=== PATIENT | female | born 2000 | race Caucasian/White ===

== ENCOUNTER 2020-02-23 14:21 | Emergency (ER) | payer BC, SELFPAY ==
--- NOTE | 2020-02-23 14:43 | ED.HA ---
HPI - Headache General Chief Complaint: Headache Stated Complaint: headache Source: patient and RN notes reviewed Mode of arrival: ambulatory Limitations: no limitations History of Present Illness HPI Narrative: The patient, a non-smoker/nondrinker, presents with headache. Patient states she has a week long history of typical, gradual onset frontal helmet headache similar to prior events. Symptoms are mild, unrelieved with OTC preparations like Tylenol, [place] oil, etc. Her mother has similar headaches; no fever, prior imaging, trauma, numbness/weakness, URI?sinusitis, loss of sense of taste/smell, speech?visual changes, lateralizing weakness, related to foods -it IS related to menses started in the last week Related Data Home Medications Medication Instructions Recorded Confirmed norgestimate-ethinyl estradiol 1 tablet PO DAILY 02/23/20 02/23/20 [Tri Femynor] Allergies Allergy/AdvReac Type Severity Reaction Status Date / Time No Known Allergies Allergy Unverified 02/23/20 14:53 Review of Systems Review of Systems: Narrative: The patient has been informed that they may have pre-hypertension or Hypertension based on a BP reading in the department. I recommend that the patient call the primary care provider listed on their discharge instructions or a physician of their choice this week to arrange follow up for further evaluation of possible pre-hypertension or Hypertension General/Constitutional: No weight loss,fever Eyes: N0: Redness,discharge Ears/Nose/Throat: No: Epistaxis,ear discharge Respiratory: Denies: Hemoptysis Gastrointestinal: No Vomiting, Bleeding-rectal Skin: No Lumps, eruption Neurologic: No Focal Weakness,Sz Hematologic: Denies: Petechiae/Purpura Psychiatric: No: Suicida ideationl All Other Systems: Reviewed and Negative PMFSH Comments At time of signature, agree with nursing past medical, surgical, social and family history. There is no relevant family history pertinent to the presenting complaint Exam Narrative: Exam Narrative: General Appearance: Well appearing, No distress EYE: PERRLA, Conjunctiva clear Ears: External ear normal Nose: Normal nose Mouth/Throat: Normal appearing, Normal lips Neck: Supple Respiratory: Airway patent, No respiratory distress Musculoskeletal: Full ROM Skin: Warm, Dry Neurological: A&O x3, CN II-X intact Psychiatric: Normal mood, Normal affect Course Vital Signs Vital signs: Vital Signs Temperature 98.3 F 02/23/20 14:50 Pulse Rate 74 02/23/20 14:50 Respiratory Rate 02/23/20 14:50 Blood Pressure 133/97 H 02/23/20 14:50 Pulse Oximetry 100 02/23/20 14:50 Temperature 98.3 F 02/23/20 14:50 Pulse Rate 74 02/23/20 14:50 Respiratory Rate 02/23/20 14:50 Blood Pressure 133/97 H 02/23/20 14:50 Pulse Oximetry 100 02/23/20 14:50 Discharge Plan Discharge Clinical Impression: Migraine headache Qualifiers: Migraine type: unspecified Status migrainosus presence: without status migrainosus Intractability: not intractable Qualified Code(s): G43.909 - Migraine, unspecified, not intractable, without status migrainosus Patient Disposition: Home, Self-Care Condition: Stable Instructions: Antibiotic Form Prescriptions: New tramadol 50 mg tablet 25 - 50 mg PO Q6H PRN (Reason: pain) Qty: 15 RF: 1 prochlorperazine maleate [Compazine] 10 mg tablet 10 mg PO Q6H PRN (Reason: nausea and vomiting) Qty: 10 RF: 1 halausrlck-iochexssznizj-hxze [Fioricet] 50-300-40 mg capsule 1 cap PO HS PRN (Reason: pain, Not To Be Used/ Combined With Ultram) Qty: 10 RF: 0 No Action norgestimate-ethinyl estradiol [Tri Femynor] 0.18/0.215/0.25 mg-35 mcg (28) Tablet 1 tablet PO DAILY RF: 0 Follow-up/Referrals: Matteo,Shelby Levi MD [Primary Care Provider] - Stand Alone Forms: Work/School Release IP Discharge Date/Time: 02/23/20 15:17
[2020-02-23 14:50] VITALS: BP 133/97; PULSE 74; RESP 20; TEMP 36.8; O2SAT 100
== END 2020-02-23 15:17 | disposition home or self-care (01) ==
PROVIDERS: Emergency Provider Emergency Medicine; PCP Pediatrics Adolescent Medicine
DX: G43.909 Migraine, unspecified, not intractable, without status migrainosus (principal); J45.909 Unspecified asthma, uncomplicated; R03.0 Elevated blood-pressure reading, without diagnosis of hypertension
CPT/HCPCS: 99203; G0463

== ENCOUNTER 2021-02-05 11:30 | Emergency (ER) | payer BC, SELFPAY ==
[2021-02-05 11:36] VITALS: BP 130/97; PULSE 85; RESP 16; TEMP 36.4; O2SAT 100
--- NOTE | 2021-02-05 11:57 | ED.URI ---
HPI - URI/Sore Throat General Chief Complaint: Upper Respiratory Infection Stated Complaint: SORE THROAT Time Seen by Provider: 02/05/21 11:45 Source: patient and RN notes reviewed Mode of arrival: ambulatory Limitations: no limitations History of Present Illness HPI Narrative: Patient presents today with a 2-day history of sore throat, rhinorrhea, postnasal drip, subjective fever this morning. Denies cough or ear pain. She currently rates her pain 6/10, which increases with swallowing. She has tried no zfav-yqx-qfwljjv treatment prior to arrival. She has not been vaccinated against COVID-19. MD elicited complaint: sore throat Related Data Home Medications Medication Instructions Recorded Confirmed norgestimate-ethinyl estradiol 1 tablet PO DAILY 02/23/20 02/23/20 [Tri Femynor] Allergies Allergy/AdvReac Type Severity Reaction Status Date / Time No Known Allergies Allergy Unverified 02/23/20 14:53 Review of Systems Review of Systems: Narrative: CONSTITUTIONAL: Denies body aches, chills, or sweats. + Subjective fever EYES: Denies visual changes, redness, or discharge. ENT: Denies congestion, or otalgia.+ Sore throat, rhinorrhea, postnasal drip CARDIOVASCULAR: Denies chest pain, palpitations, or edema. RESPIRATORY: Denies cough or dyspnea. GASTROINTESTINAL: Denies abdominal pain, nausea, vomiting, or diarrhea. GENITOURINARY: Denies dysuria or hematuria. SKIN: Denies rash, itching, or wounds. MUSCULOSKELETAL: Denies back pain, joint pain, or myalgia. NEUROLOGIC: Denies headache, numbness, tingling, or weakness. PSYCH: Denies depression or anxiety. PMFSH Comments At time of signature, I have reviewed and agree with nursing past medical, surgical, social and family history unless otherwise noted. Please see nursing chart for further information. There is no relevant family history pertinent to the presenting complaint Exam Narrative: Exam Narrative: GENERAL: Well-appearing, well-nourished, and in no acute distress. HEAD: Normocephalic, atraumatic. EYES: EOMI. No redness or drainage. Conjunctivae normal. ENT: Mucous membranes pink and moist. Nares clear. No rhinorrhea. TMs normal bilaterally. Throat mildly erythematous. Small amount of white exudate on the right.. Uvula midline. NECK: Normal AROM. Supple. No lymphadenopathy. CHEST: No respiratory distress. Clear to auscultation. HEART: Regular rate and rhythm. No murmur appreciated. Normal peripheral pulses. EXTREMITIES: Normal range of motion. No edema. SKIN: Warm, dry, no rash. Capillary refill normal. Normal skin turgor. NEURO: No focal deficits. Alert and oriented x3. Gait steady. PSYCH: Normal affect. No signs of depression or anxiety. Course Vital Signs Vital signs: Vital Signs Temperature 97.6 F 02/05/21 11:36 Pulse Rate 85 02/05/21 11:36 Respiratory Rate 16 02/05/21 11:36 Blood Pressure 130/97 H 02/05/21 11:36 Pulse Oximetry 100 02/05/21 11:36 Temperature 97.6 F 02/05/21 11:36 Pulse Rate 85 02/05/21 11:36 Respiratory Rate 16 02/05/21 11:36 Blood Pressure 130/97 H 02/05/21 11:36 Pulse Oximetry 100 02/05/21 11:36 Reviewed. Pt has been instructed to follow up with her PCP regarding her elevated blood pressure today. MDM - URI/Sore Throat Differential Diagnosis Differential diagnosis: Likely upper respiratory infection, sinusitis, viral infection, pharyngitis and other (Strep throat, seasonal allergies) Lab Data Attestation: I reviewed the patient's lab results. Labs: Strep Screen Presumptive Negative *(Reference Range: Negative)* Critical Care Time Critical Care Time Critical Care Time: No Discharge Plan Discharge Clinical Impression: Upper respiratory infection Qualifiers: URI type: unspecified URI Qualified Code(s): J06.9 - Acute upper respiratory infection, unspecified Patient Disposition: Home, Self-Care Condition: Stable
== END 2021-02-05 12:06 | disposition home or self-care (01) ==
PROVIDERS: Emergency Provider Nurse Practitioner
DX: J06.9 Acute upper respiratory infection, unspecified (principal)
CPT/HCPCS: 87081; 87880; 99213; G0463

== ENCOUNTER 2024-08-07 08:36 | Emergency (ER) | payer BC, SELFPAY ==
[2024-08-07] VITALS (29 sets, daily range): BP systolic 107–139; BP diastolic 48–85; PULSE 60–68; RESP 18; TEMP 36.9; O2SAT 96–100
--- NOTE | ~2024-08-07 | CT_ITS ---
EXAMINATION:CT diagnostic chest wo con DATE: 08/07/2024 10:43 INDICATION: Left rib pain. TECHNIQUE: Computed tomography (CT) of the chest was performed without intravenous contrast. Automate d exposure control and iterative reconstruction technique were employed. The dose-length product (DLP ) was 143.43 mGy-cm. COMPARISON: None. FINDINGS: There is mild dependent atelectasis bilaterally. No pleural effusion. The heart size is nor mal. No pericardial effusion. There is a burst fracture of T8 with 3/5 loss of height centrally and l eft-sided sagittal cleft. There is a chronic compression fracture of T11 with 1/5 loss of height. IMPRESSION: 1. Acute T8 burst fracture. Reviewed, dictated and finalized at location A. LD CLEANER IMPRESSION: 1. Acute T8 burst fracture.
--- NOTE | ~2024-08-07 | CT_ITS ---
EXAMINATION: CT thoracic lumbar wo con DATE: 08/07/2024 10:44 INDICATION: Back pain. Fall down stairs. TECHNIQUE: Computed tomography (CT) of the thoracic and lumbar spine was performed without intravenou s contrast. Automated exposure control and iterative reconstruction technique were employed. The dose -length product was 1006.68 mGy-cm. COMPARISON: None FINDINGS: CT THORACIC SPINE: There is 6 degrees dextrocurvature of thoracic spine. There is a burst fracture of T8 with 3/5 loss of height centrally. There is a chronic compression fracture of T11 with 1/5 loss o f height. There is mildly decreased disc height at T10-T11. There is multilevel mild facet joint oste oarthritis. No neural foraminal stenosis or central canal stenosis. CT LUMBAR SPINE: Alignment is normal. Vertebral body heights and intervertebral disc heights are norm al. The following disc levels are specifically discussed: L1-L2: The disc does not extend beyond the endplate margin. There is mild bilateral facet joint osteo arthritis. There is no neural foraminal stenosis. There is no central canal stenosis. L2-L3: The disc does not extend beyond the endplate margin. There is mild bilateral facet joint osteo arthritis. There is no neural foraminal stenosis. There is no central canal stenosis. L3-L4: The disc is bulging. There is mild bilateral facet joint osteoarthritis. There is mild bilater al neural foraminal stenosis. There is mild central canal stenosis. L4-L5: The disc is bulging. There is mild bilateral facet joint osteoarthritis. There is mild bilater al neural foraminal stenosis. There is mild central canal stenosis. L5-S1: The disc is bulging. There is moderate bilateral facet joint osteoarthritis. There is mild lef t neural foraminal stenosis. There is mild central canal stenosis. IMPRESSION: 1. Acute T8 burst fracture. 2. Mild thoracic and lumbar spondylosis. Reviewed, dictated and finalized at location A. HAND
[2024-08-07] MEDS: MORPHINE SULFATE (*CRX) 4 MG/ML INJ IV PUSH (09:53)
[2024-08-07] MEDS: ONDANSETRON INJ 4 MG/2 ML VIAL IV PUSH (09:53)
--- NOTE | 2024-08-07 10:03 | ED_ITS ---
HPI - Back Pain/Injury General Chief Complaint: Back Pain/Injury Stated Complaint: mid back pain after slipping on 3 steps Time Seen by Provider: 08/07/24 09:01 Source: patient Mode of arrival: EMS Limitations: no limitations History of Present Illness HPI Narrative: Patient is a 23-year-old female who presents the ED via EMS with report of a fall and back pain. Patient reports she slipped on ice on her front steps and fell backwards onto her back. Complains of pain to her mid, left-sided, and lower back. Also reports pain to left ribs which is worse with deep inspiration. States she was unable to get up off the ground, required EMS is assistance due to the pain. Denies any other areas of pain. She did not hit her head or lose consciousness. Denies dizziness. Denies numbness, weakness, bowel or bladder incontinence, abdominal pain. Related Data Home Medications ?Medication ?Instructions ?Recorded ?Confirmed ?Last Taken ?Type norgestimate-ethinyl estradiol 1 tablet PO DAILY 02/23/20 02/23/20 Unknown History 0.18 mg/0.215mg/0.25mg-35 mcg(28)tablet (Tri Femynor) Allergies Allergy/AdvReac Type Severity Reaction Status Date / Time No Known Allergies Allergy Verified 08/07/24 09:06 Review of Systems Review of Systems: All systems reviewed & are unremarkable except as noted in HPI. All systems reviewed & are unremarkable except as noted in HPI and below Exam Narrative: GENERAL: Anxious/tearful appearing, well-nourished, in no acute distress d/t pain. HEAD: Normocephalic, atraumatic. RESPIRATORY: Airway patent, respirations nonlabored. Clear to auscultation bilaterally, no rales, rhonchi, wheezing. Pain to L ribs with deep inspiration. Lung sounds seem equal bilaterally. CARDIOVASCULAR: Regular rate and rhythm without murmurs, rubs, or gallops. ABDOMINAL: Soft, nontender, nondistended. Normoactive BS. MUSCULOSKELETAL: Moves all extremities. No gross deformities. TTP diffusely thro ughout lower midline thoracic spine into upper midline lumbar region. TTP over L mid back over inferior lateral rib cage. No palpable bony deformities or step offs. Sensation intact. No significant tenderness throughout cervical midline spine. SKIN: Warm, dry, normal color. NEURO: A&O X3. Speech clear. Cranial nerves II-XII grossly intact. Steady gait. No ataxic movements. No focal deficits. PSYCHIATRIC: Anxious/to fall. Normal interaction. Course Vital Signs Vital signs: Vital Signs Temperature 98.4 F 08/07/24 08:32 Pulse Rate 64 08/07/24 08:32 Respiratory Rate 18 08/07/24 08:32 Pulse Oximetry 100 08/07/24 08:32 Oxygen Delivery Room Air 08/07/24 08:32 Temperature 98.4 F 08/07/24 08:32 Pulse Rate 68 08/07/24 13:01 Respiratory Rate 18 08/07/24 13:01 Blood Pressure 115/68 08/07/24 13:01 Pulse Oximetry 98 08/07/24 13:01 Oxygen Delivery Room Air 08/07/24 08:32 MDM - Back Pain/Injury MDM Narrative Medical decision making narrative: Patient presented to ED status post fall on ice, slipped on the stairs. Reporting pain to left mid and lower back. Vital signs are stable upon arrival. Patient is mildly uncomfortable appearing, pain worse with any type of movement. There are no signs of cord compression or cauda equina. Normal neurologic exams. No numbness or tingling in extremities. No red flag symptoms. Imaging showing acute burst fracture of T8 with 3/5th height loss. Consistent with injury and clinical exam. Will discuss with Neurosurgery. Discussed case with Dr. Justin, neurosurgery, will f/u in office as outpatient, recommended TSLO brace. Will have [facility] come to ED to have patient fitted for TLSO brace. Office will call patient for f/u appt. Patient ambulates with a steady gait after pain control. She remains neurologically intact. Feel she is safe for discharge home with pain medicine and further outpatient management. Discussed strict return precautions. She agrees w/ plan. Feels comfortable going home. Has family to help her. Patient discharged in stable condition. Medical Records Attestation: I reviewed the patient's medical records. Imaging Data Attestation: I personally reviewed and interpreted this imaging study as linda baer: Radiologist's impression: ITS Impressions Chest CT 08/07/24 11:00 IMPRESSION: 1. Acute T8 burst fracture. Thoracic/Lumbar Spine CT 08/07/24 11:03 IMPRESSION: 1. Acute T8 burst fracture. 2. Mild thoracic and lumbar spondylosis. Discharge Plan Discharge Clinical Impression: Stable burst fracture of T8 vertebra Qualifiers: Encounter type: initial encounter Fracture type: closed Qualified Code(s): S22.061A - Stable burst fracture of T7-T8 vertebra, initial encounter for closed fracture Fall from slipping on ice Qualifiers: Encounter type: initial encounter Qualified Code(s): W00.9XXA - Unspecified fall due to ice and snow, initial encounter Patient Disposition: Home, Self-Care Condition: Stable Instructions: Antibiotic Form, Vertebral Compression Fracture (ED), Acute Low Back Pain (ED) Additional Instructions: The neurosurgery office should be contacting you to make an appointment for further evaluation of fracture. I have provided their number below. Wear TLSO brace at all times when out of bed for support and stabilization. Recommend ice, lidocaine patches to areas of pain. Continue Tylenol/ibuprofen as needed for pain. Oxycodone as needed for more severe/breakthrough pain. Take muscle relaxers as needed and prescribed. Recommend taking these at night as they may cause sedation. Do not drive, operate heavy machinery, drink alcohol while on muscle relaxers as this may cause further sedation. Use caution taking Oxycodone with muscle relaxers as these can both cause sedation. Return to the ED if you experience recurrent fall or injury, numbness of arms or legs, weakness, going to the bathroom without meeting to, unable to ambulate, fevers, or any other symptoms of concern. Patient Language: Belarusian Prescriptions: New oxycodone 5 mg tablet 5 mg PO Q6H PRN (Reason: pain) Qty: 20 0RF cyclobenzaprine 5 mg tablet 5 mg PO TID PRN (Reason: muscle spasm) Qty: 15 0RF lidocaine 5 % adhesive patch,medicated 1 patch topical DAILY Qty: 15 0RF Rx Instructions: leave on most painful area for up to 12 hrs No Action norgestimate-ethinyl estradiol [Tri Femynor] 0.18/0.215/0.25 mg-35 mcg (28) Tablet 1 tablet PO DAILY Follow-up/Referrals: Reinaldo Justin MD [Physician] - (NEUROSURGERY) PHYSICIAN,REPAIRER CYLINDER HEADS [Primary Care Provider] - Stand Alone Forms: Work/School Release IP Time of Disposition: 16:23
[2024-08-07] MEDS: HYDROcodone/acetaminophen (*CRX) 5-325 MG TABLET 1 TAB PO (11:30)
[2024-08-07] MEDS: KETOROLAC 30 MG/ML VIAL (*BKC) IV PUSH (11:31)
--- NOTE | 2024-08-07 11:48 | PC.NURSE ---
Patient ambulated to the restroom with assistance from family
--- NOTE | 2024-08-07 15:05 | PC.NURSE ---
Patient updated on wait time. Still waiting for back brace company to come with item.
[2024-08-07] MEDS: oxyCODONE HCL (*CRX) 5 MG TAB IR PO (16:01)
[2024-08-07] MEDS: LIDOCAINE 5% PATCH 1 PATCH TRANSDERM (16:02)
== END 2024-08-07 17:31 | disposition home or self-care (01) ==
PROVIDERS: Emergency Provider Physician Assistant
DX: S22.061A Stable burst fracture of T7-T8 vertebra, initial encounter for closed fracture (principal); M47.815 Spondylosis without myelopathy or radiculopathy, thoracolumbar region; W00.0XXA Fall on same level due to ice and snow, initial encounter
CPT/HCPCS: 71250; 72128; 72131; 96374; 96375; 99284; A9270; J1885; J2270; J2405

== ENCOUNTER 2024-12-11 10:13 | Emergency (ER) | payer BC, SELFPAY ==
--- NOTE | ~2024-12-11 | US_ITS ---
EXAM: ABDOMEN ULTRASOUND HISTORY: Right upper quadrant and back pain COMPARISON: None FINDINGS: LIVER: The liver is unremarkable in echogenicity and size measuring 16 cm in longitudinal dimension. The portal vein is patent, demonstrating hepatopedal flow. GALLBLADDER: No stones are identified within the gallbladder, which is otherwise unremarkable. No gallbladder wall thickening or pericholecystic fluid. BILE DUCTS: Common bile duct measures 2.4mm. PANCREAS: Limited evaluation of the pancreas secondary to overlying bowel gas RIGHT KIDNEY: Unremarkable in echogenicity and size measuring 10.8 x 5.8 x 5.1 cm. No hydronephrosis or renal calculi. IMPRESSION: Unremarkable sonographic evaluation of the right upper quadrant, as detailed above. Reviewed, dictated and finalized at location A. IMPRESSION: Unremarkable sonographic evaluation of the right upper quadrant, as detailed ab julieta.
[2024-12-11 10:28] VITALS: BP 141/70; PULSE 78; RESP 20; TEMP 36.7; O2SAT 100
--- OUTSIDE RECORDS SUMMARY | 2024-12-11 10:45 | XMS_ITS | Continuity of Care Document ---
Author Organization [facility] Address [address] [place] [address] Phone Care Team Providers Care Weigh Boss Name Role Phone Leon OD, Aguilar Unavailable Unavailable Procedures Procedure Date Eye Exam, New Patient Refraction Advance Directives Directive Yes / No Effective Date File Name No Information Encounters Encounter Description Practice Location Reason(s) For Visit Diagnoses Date Provider Providers Copied on Encounter [facility], [address], [place], [place], [id number], [place] tel:[phone] [facility] No Information Sep- 5-201 0 Leon OD Aguilar. [address] , [address], [place], [address], [place]. tel:[phone] Family History Family Member Type Diagnosis Age At Onset No Information Payers Payer name Insurance type Covered republican ID Authoriza tion(s) Medicaid [facility] [id number] Social History Type Description Quantity Date Captured Comments Sex Female Smoking Status No Information Chief Complaint And Reason For Visit No Information Reason For Referral Reason For Referral No Information History Of Present Illness Encounter Date Complaint History Of Prese nt Illness No Information Functional Status Date Functional Assessmen t No Information Instructions Date Instruction Additional Infor mation No Information Assessments Type Assessment Date No Information Patient Care Teams Name Effective Dates (start - stop) Status Members No Information
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
--- OUTSIDE RECORDS SUMMARY | 2024-12-11 10:46 | XMS_ITS | Data Portability ---
Author Organization [facility] Address [address] [place] [address] Care Team Providers Care Clinical Veterinarian Name Role Phone CARMEN ROSAS Primary Care Provider [phone] Assessment Encounter Date Assessment Date Assessment LastModified by Organization Details LastModified Time 08/20/2021 08/20/2021 Annual gynecological exam performed. Patient will come back in a year unless there are new symptoms. Not available 08/20/2021 11:54:09 Plan of Treatment Reminders Order Date Submit Date Provider Last Modified By Organization Details Last Modified Time Details Appointments None recorded. Lab None recorded. Referral None recorded. Procedures None recorded. Surgeries None recorded. Imaging None recorded. Medication Orders Lo Loestrin Fe 1 mg-10 mcg (24)/10 mcg (2) tablet 2021 022 [facility]/Pharmacy #[id number], [address] [place], [address], 12:22:32 Keflex 750 mg capsule 2020 021 oss8 [facility]/Pharmacy #[id number], [address], [place], [address], 17:25:51 Diflucan 150 mg tablet [address]/Pharmacy #[id number], [address] [place], [address], 17:25:54 Lo Loestrin Fe 1 mg-10 mcg (24)/10 mcg (2) tablet 2020 021 [facility][id number], [address], [place], [address], 1 11:22:10 Lo Loestrin Fe 1 mg-10 mcg (24)/10 mcg (2) tablet 2019 020 [email or web address] [id number], [address], [place], [address], 0 11:45:49 Patient TargetsNo targets recorded. Patient Instructions Encounter Date Encounter Id Patient Instructions Last Modified By Organization Details Last Modified Time 05/11/2020 [id number] [email or web address] Not available 11:36:15 Reason for Referral None Reported. Results Created Date Observation Date Name Description Value Unit Range Abnormal Flag Note LastModifiedBy Organization Detail LastModifiedTime 05/11/20 20 05/14/2020 CT + NG DNA, PCR, unspe cifie d speci men trichomonas vaginalis, aptima (panther) NOT DETECT ED normal DNA testi ng perfo rmed by Trans c[employer] meagan Ampli ficat ion (TMA) These resul ts shoul d be inter prete d in light of all clini ariadne and labor atory findi ngs. This assay is highl y accur ate, but rare false posit berry and negat brery resul ts may occur . Posit berry resul ts in low preva lence popul ation s may requi re re-ev aluat ion. A negat berry resul t does not precl ude a possi ble infec tion due to a speci men inade quacy or sampl ing error . Test perfo rmed by [facility], d/b/a aSra pierre, [address], [place] [address] , Nathan Jain ra, DO, Labor atory Direc tor. Not Available [facility] ([facility]) [address], [place], [address], 05/16/2020 06:04:42 05/11/20 20 05/16/2020 CT + NG DNA, PCR, unspe cifie d speci men neisseria gonorrhoeae, aptima NOT DETECT ED normal DNA testi ng perfo rmed by Trans c[employer] meagan Ampli ficat ion (TMA) These resul ts shoul d be inter prete d in light of all clini ariadne and labor atory findi ngs. This assay is highl y accur ate, but rare false posit berry and negat berry resul ts may occur . Posit berry resul ts in low preva lence popul ation s may requi re re-ev aluat ion. A negat berry resul t does not precl ude a possi ble infec tion due to a speci men inade quacy or sampl ing error . Test perfo rmed by [employer], d/b/a Sara pierre, [address], [place] [address] , Nathan Jain ra, DO, [facility]. Not Available [facility] [place] [place] [facility] ([facility]) [address], [place], [address], 05/16/2020 06:04:42 05/11/20 20 05/16/2020 CT + NG DNA, PCR, unspe cifie d speci men chlamydia trachomatis, aptima NOT DETECT ED normal DNA testi ng perfo rmed by Trans c[employer] meagan Ampli ficat ion (TMA) These resul ts shoul d be inter prete d in light of all clini ariadne and labor atory findi ngs. This assay is highl y accur ate, but rare false posit berry and negat berry resul ts may occur . Posit berry resul ts in low preva lence popul ation s may requi re re-ev aluat ion. A negat berry resul t does not precl ude a possi ble infec tion due to a speci men inade quacy or sampl ing error . Test perfo rmed by [facility], d/b/a Sara pierre, [address], [place] [address] , Nathan Jain ra, DO, Labor [facility]. 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 FINAL DIAGN OSIS: Negat berry for Intra epith elial Lesio n or Mary lopez (NIL) . Elect saskia pennington d by Jocelin Clark, CT on 022 at 5:38 PM ----- ----- ----- ----- ----- ----- ----- ----- ----- ----- ----- ----- ----- ----- ----- ----- ----- ---- COMME NT: Note: This speci men was revie wed by a Cytot echno logis t and/o r Patho logis t (as indic ated in this repor t) after evalu ation using the Thinp rep Imagi ng Syste m. CLINI ARIADNE INFOR MATIO N: Menst rual Statu s: LMP (if appli cable ): Clini ariadne Histo ry/Pr eviou s Pap: Type of Neopl priyank (if appli cable ): Signi fican t Clini ariadne Findi ngs: Other Histo ry: Hormo masoud (if appli cable ): PAP EDUCA MARY L NOTE: The Pap Test is a scree zeenat test with an inher ent false negat berry rate. Liqui d-bas ed sampl ing may decre ase, but will not elimi scott, false negat berry resul ts. A negat berry resul t does not precl ude the prese nce and/o r devel opmen t of disea se, since the prese nce of abnor mal cells in the sampl e depen ds on the locat ion of the lesio n and sampl ing techn ique. Pete nued regul ar scree zeenat is the best metho d of cance r preve ntion . If repor meagan cytol ogic findi ng do not corre late with physi ariadne and/o r histo rical findi ngs, furth er inves tigat ion is recom rhonda d, as clini sarah torres nted. Not Available [facility] (Lab) [address] , [place], [address], 08/28/2021 18:42:08 08/20/19 22 08/20/2021 TRICH OMONA S VAGIN KIRIT (RRNA ) trichomonas vaginalis ribosomal RNA (rrna) Negati ve negati ve Not Available [facility] (Lab) [address] , [place], [address], 08/28/2021 18:42:09 08/20/19 22 08/20/2021 CT/GC (DANICA) , THINP REP VIAL chlamydia trachomatis, PCR Negati ve negati ve Not Available [facility] (Lab) [address] , [place], [address], 08/28/2021 18:42:09 08/20/19 22 08/20/2021 CT/GC (DANICA) , THINP REP VIAL neisseria gonorrhoeae, PCR Negati ve negati ve Not Available [facility] (Lab) [address], [place], [address], 08/28/2021 18:42:09 Result Notes None recorded. Procedures Surgical History Date Name Laterality Status Provider Name and Address Organization Details Recorded Time 02/12/2021 I&D completed Marlee Garcia, [facility]- [address], [place], [address], [facility] 02/12/2021 15:31:32 Imaging Results None recorded. Procedure Notes None recorded. Medical Equipment None Reported. Allergies No known drug allergies Medications Name Sig Start Date Stop Date Status Note LastModified by Organization Details LastModified Time fluoxetine 40 mg capsule TAKE 1 CAPSULE BY MOUTH EVERY DAY active Not Available Not Available No t Available triamcinolo ne acetonide 0.5 % topical cream APPLY A THIN LAYER ONTO THE RASH TWICE DAILY active Not Available Not Available No t Available alprazolam 1 mg tablet TAKE 1 TABLET BY MOUTH 30-60 MINUTES PRIOR TO PROCEDURE *MUST HAVE EXHIBIT CLEANER TO/FROM PROCEDURE active Not Available Not Available No t Available fluconazole 150 mg tablet TAKE 1 TABLET ON DAYS 1, 4 & 7 FOR TOTAL OF 3 DOSES. 08/19 completed Not Available Not Available Not Available prochlorper azine maleate 10 mg tablet TAKE 1 TABLET BY MOUTH EVERY 6 HOURS NEEDED FOR NAUSEA/VO MITING 07/31 completed Not Available Not Available Not Available tramadol 50 mg tablet TAKE 1/2 TO 1 TABLET BY MOUTH EVERY 6 HOURS NEEDED FOR PAIN 07/31 completed Not Available Not Available Not Available hydroxyzine HCl 25 mg tablet TAKE 1 TABLET BY MOUTH NEEDED FOR PANIC ATTACKS. NO MORE THAN 3 TABLETS DAILY active Not Available Not Available No t Available ergocalcife rol (vitamin D2) 1,250 mcg (50,000 unit) capsule TAKE 1 CAPSULE EVERY WEEK BY ORAL ROUTE. active Not Available Not Available No t Available ondansetron 4 mg disintegrat ing tablet LET 1 TABLET DISSOLVE BY MOUTH EVERY 8 HOURS NEEDED FOR NAUSEA active Not Available Not Available No t Available fluoxetine 20 mg capsule TAKE 1 CAPSULE BY MOUTH EVERY DAY IN THE MORNING active Not Available Not Available No t Available cephalexin 750 mg capsule TAKE 1 CAPSULE BY MOUTH TWICE A DAY FOR 7 DAYS 08/19 completed Not Available Not Available Not Available butalbital- acetaminoph en-caffeine 50 mg-300 mg-40 mg capsule TAKE 1 CAPSULE BY MOUTH AT BEDTIME NEEDED FOR PAIN. NOT TO BE COMBINED WITH TRAMADOL (ULTRAM) 07/31 completed Not Available Not Available Not Available Lo Loestrin Fe 1 mg-10 mcg (24)/10 mcg (2) tablet Take 1 tablet every day by oral route for 90 days. 2023 active Not Available Not Available Not Avai lable Tri Femynor (28) 0.18 mg(7)/0.215 mg(7)/0.25 mg(7)-35 mcg tablet Take 1 tablet every day by oral route. 07/31 completed Not Available Not Available Not Available Vitals Date Recorded Body height Body mass index (BMI) Body weight Systolic blood pressure Diastolic blood pressure Provider Name and Address Organization Details Last Updated DateTime 02/12/2021 172.09 cm 22.2 kg/m2 12936.89 g 125 mm[Hg] 80 mm[Hg] [facility] 1 14:45:11 Date Recorded Body height Body mass index (BMI) Body weight Systolic blood pressure Diastolic blood pressure Provider Name and Address Organization Details Last Updated DateTime 08/20/2021 167.64 cm 26.1 kg/m2 63206.96 g 118 mm[Hg] 74 mm[Hg] [facility] 2 11:56:15 Date Recorded Body height Body mass index (BMI) Body mass index (BMI) Percentile per age and sex Body weight Systolic blood pressure Diastolic blood pressure Provider Name and Address Organization Details Last Updated DateTime 0 172.09 cm 21 kg/m2 40 % 77272.1 5 g 111 mm[Hg] 70 mm[Hg] Che Parker [facility] 0 11:21:45 Date Recorded Body height Body mass index (BMI) Body mass index (BMI) Percentile per age and sex Body weight Systolic blood pressure Diastolic blood pressure Provider Name and Address Organization Details Last Updated DateTime 1 172.09 cm 21.4 kg/m2 44 % 63478.9 3 g 125 mm[Hg] 74 mm[Hg] Natalie Ramos [facility] 1 11:12:21 Social History Question Answer Notes LastModified by Organizat ion Details LastModified Time Tobacco Smoking Status Former Smoker Che ulloa, [facility] 05/11/2020 11:24:04 Are You Blind Or Do You Have Difficulty Seeing? No Information not available 08/19/2021 What Is Your Level Of Caffeine Consumption? Occasional Information not available 08/19/2021 Are You Deaf Or Do You Have Serious Difficulty Hearing? No Information not available 08/19/2021 What Type Of Diet Are You Following? REGULAR Information not available 08/19/2021 What Was The Date Of Your Most Recent Tobacco Screening? 05/11/2020 [email or web address] Information not available 05/11/2020 Do You Use Your Seat Belt Or Car Seat Routinely? Yes Information not available 08/19/2021 Are You Sexually Active? Yes Information not available 08/19/2021 Do You Have Smoke And Carbon Monoxide Detectors In Your Home? Yes Information not available 08/19/2021 How Much Tobacco Do You Smoke? No Information not available 05/11/2020 Do You Use Sunscreen Routinely? Yes Information not available 08/19/2021 Sex: Unknown Functional Status Question Answer Note LastModified by Organizat ion Details LastModified Time Do you use any illicit or recreational drugs? No Information not available 08/19/2021 What is your level of alcohol consumption? Occasional [email or web address] Information not available 05/11/2020 Do you or have you ever used smokeless tobacco? Never used smokeless tobacco Information not available 05/11/2020 Are you able to walk? YESWOREST Information not available 08/19/2021 Do you or have you ever used e-cigarettes or vape? Current user of electronic cigarettes Information not available 05/11/2020 What is your exercise level? Occasional [email or web address] Information not available 05/11/2020 Mental Status Question Answer Note LastModified by Organization D etails LastModified Time Do you feel stressed (tense, restless, nervous, or anxious, or unable to sleep at night)? [id number] Information not available 08/19/2021 Family History Relationship Description Onset Age of this Age Resolved Age Notes LastModified by Organization Details LastModified Time Maternal Grandmother Asthma [email or web address] Not available 11:23:42 Mother Disorder of thyroid gland [email or web address] Not available 05/11 11:23:51 Medical History Condition Response Other Y Asthma Y Gynecological History Statement/Question Response Flow Moderate Date of LMP 08/06/2021 Was last menstrual period normal N STIs/STDs N HPV Vaccine Y Current Control Method BCPs Are cycles usually normal N Sexually Active? Y Menses Monthly N Date of Last Pap Smear Sexual Problems? Y LMP Approximate Obstetrics History GPAL:G 0 P 0 0 0 0 Past Encounters Encounter ID Performer Location Encounter Start Date Encounter Closed Date Diagnosis/Indication Diagnosis SNOMED-CT Code Diagnosis ICD10 Code Diagnosis Note [id number] Marlee Garcia , [facility] [address] [address] 05/11/2020 11:02:22 05/11/2020 11:53:50 Secondary dysmenorrhea 22642369 N94.5 After much discussion we agreed to trial a switch in OCP's to one with lower estrogen content & steady weekly dose of E/P vs the tri-phasic she is currently on for both Dysmenorrh ea & Menstrual headaches. Discussed all control options in great detail. Pt would like to start ocp. She is aware of the risks and benefits. She does not have any medical condition that is contraindi cated with the use of estrogen containing control. Pt will start her pills on the first wednesday following the start of her period. She is aware it is not effective for control the first month. She is also aware of the importance of taking at the same time every day. Encouraged use of condoms as the pill does not protect against STD's. Will return in 3 months for med check. Consent was read and signed. Pt verbalized understand ing. We agreed that if this does not help her headaches a referral to neurologis t will be required to ensure no other issues that need to be addressed. She verbalized understand ing and agrees to POC. Urine sent STD screening Time spent in visit is a total of 30 mins with at least 50% of visit consisting of counseling and review of plan of care. Menstrual migraine 60485 000 G43.829 See above. [id number] Marlee Garcia [facility] [address] [address] 07/31/2020 10:43:51 07/31/2020 17:21:57 Contraception care management [id number] Z30.9 N94.5 Patient is here today for a medicaton check of control. She voices goals of therapy have been met with use of this therapy. She denies neg side effects. She is eating, drinking, sleeping well; moods are stable & periods are well regulated. Wishes to continue this method of BC. Appropriat e to continue this medication . Rx Lo loestrin FE sent x 1yr Time spent in visit is a total of 15 mins with at least 50% of visit consisting of counseling and review of plan of care. [id number] [facility] [address] [address] 02/12/2021 14:34:14 02/17/2021 14:44:53 Boil of tunica vaginalis [id number] N49.1 I & D of boil along crease of left groin.PO ABX givenWill contact office if issues(see procedure note) Time spent in visit is a total of 15 mins with at least 50% of visit consisting of counseling and review of plan of care NOT including time spent on procedure. Additional precaution puja measures were taken to minimize potential exposure to the Covid-19 virus during this patient s visit, including available hand education and development manager upon arrive, temperatur e check and being asked a series of screening questions. All staff wore face coverings during this encounter, as well as provided additional cleaning and sanitizing of all surfaces, including countertop s, pens, chairs, door handles, light switches, etc, prior to and following the patient s visit. [id number] Marlee Garcia [facility] [address] [address] 08/20/2021 11:37:35 08/20/2021 13:20:32 Gynecologic examination [id number] Z01.419 Take Calcium with Vitamin D 1200mg daily if not receiving in daily diet. It is strongly advised to have an annual flu shot and up can obtain at most pharmacies . If you have not had a TDap shot in the last 10 years you should obtain one as well. Discussed with patient & provided with informatio n regarding Gardisil vaccine to prevent the 4 strains for HPV that cause cervical cancer if under age 26. Encourage safe sexual practices, to use condoms and limit partners if not already in a monogamous relationsh ip. Do monthly self breast exams. Have mammogram yearly or every other year depending on family history. BRCA testing is now available for patients with strong genetic history of female cancer. If interested contact the office. Engage in daily exercise of low impact aerobic exercise 45-60 minutes 4-5 times weekly. Avoid tobacco and illicit drugs as well as using moderation with alcohol intake less than 1-2 8 oz beverages daily. This lifestyle behavior pattern will lead to less health conditions and longer life span. If BMI greater than 25 weight watchers or dietary consult advised. Patient received above instructio ns, and questions have been answered. If you have any questions please call or respond to this email. Patient was made aware of the patient portal and may obtain a paper copy of today's plan if desired. Pap/STD sentGeneti c screen discussedN o issues or concerns this year [facility] ion care management [id number] N94.5 Happy on OCP.RF sent x 1yr Health Concerns Section Related Observation LastModified by Organization Detai ls LastModified Time None Recorded Concern Status LastModified by Organization Details LastModified Time None Recorded Advance Directives Directive None Recorded Payers Encounter Date Sequence Insurance Name Policy Number Policy Silva Covered Member ID Silva Member ID Guarantor Name 05/11/2020 1 [place] [id number] Amando Zimmerman [id number] Ana Erasmo 07/31/2020 1 [place] [id number] Amando Zimmerman [id number] Ana Erasmo 02/12/2021 1 [place] [id number] Amando Zimmerman [id number] 11 Ana Zimmerman 08/20/2021 1 [place] [id number] Amando Zimmerman [id number] 11 Ana Zimmerman Notes Date Note Type Note Provider Name and Address Organization Details Recorded Time 05/11/2020 text/html Patient is a 19y o white reproductive age female here today to discuss concerns of Dysmenorrhea with current control and also headaches the week leading up to her menses for the past 2mos. She reports that she has been on current triphasic OCP for almost a year. Did well in regards to no headaches on this pill until recently the last couple of months. However, still with a low level of dysmenorrhea on her cycle. She does not have a history of migraines with aura. She has been to the ED in the past for headache most recently last month. Headache starts week prior to period then stops once period is over. Was given Tramadol & this helped. She is not on Rx headache medication. She has no visual changes, SOB, Dizziness, nausea; headaches are usually unilateral when they occur. UTD vaccinations Normal monthly menses lasting 4-5d with dysmenorrhea since menarche. Requests STD screening. Smoking: Vapes x 2yrs CELENA Garcia [address], [place], [address], [facility] 05/11/2020 11:45:55 07/31/2020 text/html Patient is here today for a medicaton check of control. She voices goals of therapy have been met with use of this therapy. She denies neg side effects. She is eating, drinking, sleeping well; moods are stable & periods are well regulated. Wishes to continue this method of BC. Appropriate to continue this medication. STORMY Garcia [address], [place], [address], [facility] 07/31/2020 11:22:48 02/12/2021 text/html Here for vaginal bump x 2wks that is very tender and irritating. Has experienced a similar cyst/boil in same exact spot.Same area has returned & is rubbing in crease of left groin causing discomfort & irritation.Refrained from picking, popping, or squeezing it.Neg vag d/c, itching, odorNeg urinary sx'sNeg GI issuesNeg abd/pelvic painNeg N/F/V/D/C Marlee Garcia [facility] [address], [place], [address], [facility] 02/13/2021 11:51:07 08/20/2021 text/html Annual GYNReport ed bypatient.History:no gynecologic complaints Menstrual cycle:Normal menses Urinary symptoms:No hematuria; No incontinence Vulva:No genital lesion Vagina:Normal vaginal discharge Breast:No breast pain; No breast lump; No nipple discharge Current Contraception:Satisf ied with current contraception; Monogamous relationship; Oral contraceptives Sexual complaints:No sexual complaints; No pain during intercourse; Normal libido Menopausal Symptoms:No menopausal symptoms; Normal vaginal lubrication Psychological symptoms:No depression; No anxiety; No PMDD Preventive measures:Encourage self breast examination; Encourage regular exercise; Encourage no tobacco use; Encourage regular mammograms starting age 40; Followed with Q3 year pap smear and high risk HPV typing [facility] [address], [place], [address], [facility] 08/20/2021 13:06:56 OBGyn Episode No OBEpisode recorded.
--- OUTSIDE RECORDS SUMMARY | 2024-12-11 10:46 | XMS_ITS | Data Portability ---
Author Organization [place] [facility], Main Office Address [address] [place] [address] Care Team Providers Care Opto Mechanical Engineer Name Role Phone ZAYRADONNA Primary Care Provider [phone] HOPHARIAZUCENAIE Referring Provider [phone] Assessment Encounter Date Assessment Date Assessment LastModified by Organization Details LastModified Time 11/03/2022 11/03/2022 This note is dictated and transcribed by [employer]. Passenger Car Conductor variances may occur. Despite proofreading, typographical errors may occur. [email or web address] Not available 11/03/2022 16:29:25 11/20/2022 11/20/2022 [facility] 03/20/22 Call office if worse, ER if life-threatening illness RTC 2 months She and her mom voice understanding of plan and agrees [email or web address] Not available 11/20/2022 16:00:11 02/25/2023 02/25/2023 [facility] 03/20/22 Call office if worse, ER if life-threatening illness RTC 4 months She and her mom voice understanding of plan and agrees Not available 02/25/2023 11:02:00 04/23/2023 04/23/2023 Call office if worse, ER if life-threatening illness Keep scheduled follow-up appointment She voiced understanding of plan and agrees [email or web address] Not available 04/23/2023 16:44:40 07/06/2023 07/06/2023 [facility] 03/20/22 Call office if worse, ER if life-threatening illness RTC 4 months- she plans transfer to PCP in [place] She and her mom voice understanding of plan and agrees [email or web address] Not available 07/06/2023 16:14:24 Plan of Treatment Reminders Order Date Submit Date Provider Last Modified By Organization Details Last Modified Time Details Appointments None recorded. Lab None recorded. Referral dermatolog ist referral 2022 023 [email or web address] Milton Acosta MD, [address] [facility], [address], [place], [address], 4 08:29:[address] referral - anxiety/PT SD 2022 023 mariah Chirinos MD, [address], [address], [place], [address], 4 08:29:11 Procedures None recorded. Surgeries None recorded. Imaging None recorded. Medication Orders [facility], [facility] ODT 75 mg disintegra ting tablet 2022 023 QUAN [id number], [address], [place], [place], [id number], 3 15:43:13 doxycyclin e hyclate 100 mg capsule [address] [id number], [address] , [place], [place], [id number], 3 15:29:19 Nurtec ODT 75 mg disintegra ting tablet 2022 023 [facility], [employer] (New Address), [address] [place] [address], [address], [place], [place], [id number], 3 10:58:49 Nurtec ODT 75 mg disintegra ting tablet 2022 023 [facility], [address], [address], [place], [address], 3 15:40:36 fluoxetine 40 mg capsule 2022 023 [id number], [address], [place], [address], 3 15:35:45 Patient TargetsNo targets recorded. Patient InstructionsNo instructions recorded. Reason for Referral Component Prep Operator Referral for E ruption Referring Physician: Donna Aceves, Internal Medicine, Encounter Date: 02/25/2023 Psychiatrist Referral for An xiety anxiety/PTSD Referring Physician: Donna Aceves, Internal Medicine, Encounter Date: 02/25/2023 Results Created Date Observation Date Name Description Value Unit Range Abnormal Flag Note LastModifiedBy Organization Detail LastModifiedTime Result Notes None recorded. Problems Name Problem SNOMED Code Status Onset Date Resolution Date Notes Provider Name and Address Organization Details Recorded Time Pain in left foot 6963705978343 07 Active 2022 Not Available [facility] 3 01:32:41 Generalize d anxiety disorder 65651244 Active 2022 LINDA Kumar [address], [address], [place], [address] , [employer] 3 15:43:03 Pruritic rash 70338528 Active 2022 Juan Manuel Nugent DPM [address], [address], [place], [address] , [facility] [employer] 3 16:00:45 Migraine 40410028 Active 2022 LINDA Kumar [address], [address], [place], [address] , [employer] 3 20:33:59 Anxiety 92459444 Active 2022 LINDA Kumar [address], [address], [place], [address] , [facility] [employer] 3 20:34:03 Posttrauma tic stress disorder 55933303 Active 2022 LINDA Kumar [address], [address], [place], [address] , [facility] 3 20:34:08 Fatigue 56200119 Active 2022 LINDA Kumar [address], [address], [place], [address] , [facility] 3 20:34:23 Neuropathy 440093089 Active 2022 LINDA Kumar [address], [address], [place], [address] , [facility] 3 20:34:57 Varicose veins of lower extremity 90534108 Active 2022 LINDA Kumar [address], [address], [place], [address] , [facility] 3 20:35:43 Vitamin D deficiency 11388136 Active 2022 Loyda ulloa, [facility] 3 10:46:25 Neetu thyroiditi s 66076616 Active 2022 LINDA Kumar [address], [address], [place], [address] , [facility] 3 15:59:18 Eruption 042551873 Active 2022 LINDA Kumar [address], [address], [place], [address] , [facility] 3 16:23:28 Chronic post-traum atic stress disorder 608008380 Active 2022 Loyda ulloa, [facility] 3 14:09:10 Infected insect bite 868747421 Active 2022 LINDA Kumar [address], [address], [place], [address] , [facility] 3 15:37:55 Open wound of ankle 095078107 Active 2022 Shelby Isaac, SANJANA null, [place] [facility] 3 15:50:52 Problem Notes None recorded. Medical Equipment None Reported. Allergies No known drug allergies Medications Name Sig Start Date Stop Date Status Note LastModified by Organization Details LastModified Time fluoxetine 40 mg capsule TAKE 1 CAPSULE BY MOUTH EVERY DAY active Not Available Not Available No t Available buspirone 5 mg tablet TAKE 1 TABLET BY MOUTH TWICE DAILY active Not Available Not Available No t Available doxycycline hyclate 100 mg capsule TAKE 1 CAPSULE BY MOUTH TWICE DAILY FOR 7 DAYS 07/06 completed Not Available Not Available Not Available triamcinolo ne acetonide 0.5 % topical cream APPLY A THIN LAYER ONTO THE RASH TWICE DAILY active Not Available Not Available No t Available alprazolam 1 mg tablet TAKE 1 TABLET BY MOUTH 30-60 MINUTES PRIOR TO PROCEDURE *MUST HAVE JOB COST ESTIMATOR TO/FROM PROCEDURE 10/16 completed Not Available Not Available Not Available fluconazole 150 mg tablet TAKE 1 TABLET ON DAYS 1, 4 & 7 FOR TOTAL OF 3 DOSES. 02/20 completed Not Available Not Available Not Available Tubersol 5 tub. unit/0.1 mL intradermal injection solution Inject 0.1 mL every day by intraderm al route. 09/18 completed Not Available Not Available Not Available hydroxyzine HCl 25 mg tablet Take 1 tab PO PRN panic attacks, max dose 3 tabs per day active Not Available Not Available No t Available ergocalcife rol (vitamin D2) 1,250 mcg (50,000 unit) capsule TAKE 1 CAPSULE EVERY WEEK BY ORAL ROUTE. 2022 active Not Available Not Available Not Avai lable ondansetron 4 mg disintegrat ing tablet Place 1 tablet q 8h PRN nausea active Not Available Not Available No t Available fluoxetine 20 mg capsule TAKE 1 CAPSULE BY MOUTH EVERY DAY active Not Available Not Available No t Available cephalexin 750 mg capsule TAKE 1 CAPSULE BY MOUTH TWICE A DAY FOR 7 DAYS 02/20 completed Not Available Not Available Not Available Lo Loestrin Fe 1 mg-10 mcg (24)/10 mcg (2) tablet TAKE 1 TABLET BY MOUTH EVERY DAY active Not Available Not Available No t Available fluoxetine 60 mg tablet TAKE 1 TABLET BY MOUTH EVERY DAY active Not Available Not Available No t Available Ubrelvy 100 mg tablet Take 1 PO at start of migraine, may repeat dose in 2h if no relief, no more than 2 tabs per 24h period 04/23 completed Not Available Not Available Not Available Nurte ODT 75 mg disintegrat ing tablet DISSOLVE ONE TABLET BY MOUTH NEEDED FOR MIGRANE. DO NOT TAKE MORE THAN 1 TABLET IN 24 HOURS active Not Available Not Available No t Available Vitals Date Recorded Body height Body mass index (BMI) Body weight Heart rate Respiratory rate Oxygen saturation Oxygen saturation in Arterial blood by Pulse oximetry Systolic blood pressure Diastolic blood pressure Provider Name and Address Organization Details Last Updated DateTime 3 172.72 cm 23.1 kg/m2 76530.0 4 g 67 /min 14 /min 99 % 99 % 118 mm[Hg] 77 mm[Hg] Natalie Ramos [employer] [facility] [employer] 3 15:29:43 Date Recorded Body height Body mass index (BMI) Body weight Body temperature Heart rate Oxygen saturation Oxygen saturation in Arterial blood by Pulse oximetry Systolic blood pressure Diastolic blood pressure Provider Name and Address Organization Details Last Updated DateTime 3 172.72 cm 23.7 kg/m2 95092.4 1 g 97.8 [degF] 62 /min 98 % 98 % 128 mm[Hg] 80 mm[Hg] Shelby Isaac MA [place] [employer] [facility] [employer] 3 15:28:22 Date Recorded Body height Body mass index (BMI) Body weight Body temperature Heart rate Oxygen saturation Oxygen saturation in Arterial blood by Pulse oximetry Systolic blood pressure Diastolic blood pressure Provider Name and Address Organization Details Last Updated DateTime 3 172.72 cm 25.5 kg/m2 43170.5 2 g 98 [degF] 64 /min 98 % 98 % 128 mm[Hg] 74 mm[Hg] Shelby Isaac MA [employer] 3 10:43:23 Date Recorded Body height Body mass index (BMI) Body weight Body temperature Heart rate Oxygen saturation Oxygen saturation in Arterial blood by Pulse oximetry Systolic blood pressure Diastolic blood pressure Provider Name and Address Organization Details Last Updated DateTime 3 172.72 cm 26.6 kg/m2 90134.6 6 g 97.8 [degF] 84 /min 98 % 98 % 122 mm[Hg] 74 mm[Hg] Shelby Isaac [place] [facility] 3 15:26:19 Date Recorded Body height Body mass index (BMI) Body weight Body temperature Heart rate Oxygen saturation Oxygen saturation in Arterial blood by Pulse oximetry Systolic blood pressure Diastolic blood pressure Provider Name and Address Organization Details Last Updated DateTime 3 172.72 cm 27.4 kg/m2 78115.6 3 g 98 [degF] 74 /min 98 % 98 % 116 mm[Hg] 78 mm[Hg] Shelby Isaac MA [facility] 3 15:31:33 Social History Question Answer Notes LastModified by Organizat ion Details LastModified Time Tobacco Smoking Status Current Every Day Smoker social Natalie ulloa, [facility] 10/13/2022 16:09:15 If You Are , What Was Your Level Of Alcohol Consumption Prior To ? None Information not available 10/13/2022 What Is Your Level Of Caffeine Consumption? Heavy MIGRATION.[id number] Information not available 09/24/2022 In The 14 Days Before Symptom Onset, Have You Had Close Contact With A Laboratory-confir med COVID-19 While That Case Was Ill? No MIGRATION.[id number] 2367 Information not available 09/24/2022 In The 14 Days Before Symptom Onset, Have You Had Close Contact With A Person Who Is Under Investigation For COVID-19 While That Person Was Ill? No MIGRATION.925669 2305 Information not available 09/24/2022 What Type Of Diet Are You Following? REGULAR MIGRATION.607311 7153 Information not available 09/24/2022 What Is The Highest Grade Or Level Of School You Have Completed Or The Highest Degree You Have Received? [id number] MIGRATION.244171 2236 Information not available 09/24/2022 Have There Been Any Changes To Your Family Or Social Situation? No MIGRATION.407292 5391 Information not available 09/24/2022 What Is The Fluoride Status Of Your Home? Unknown MIGRATION.694772 4788 Information not available 09/24/2022 Are There Any Guns Present In Your Home? Yes MIGRATION.364781 5791 Information not available 09/24/2022 Do You Use Insect Repellent Routinely? No MIGRATION.226971 1627 Information not available 09/24/2022 Where Do You Live? Apartment MIGRATION.504687 0002 Information not available 09/24/2022 What Was The Date Of Your Most Recent Tobacco Screening? 07/06/2023 [email or web address] Information not available 07/06/2023 Have You Ever Been Counseled For Unhealthy Alcohol Use? No Information not available 10/13/2022 Do You Have Any Pets? Yes MIGRATION.114562 1032 Information not available 09/24/2022 What Is Your Relationship Status? Single MIGRATION.466163 7891 Information not available 09/24/2022 Do You Use Your Seat Belt Or Car Seat Routinely? Yes MIGRATION.434933 0637 Information not available 09/24/2022 Do You Have Smoke And Carbon Monoxide Detectors In Your Home? Yes MIGRATION.446343 0681 Information not available 09/24/2022 Are You Passively Exposed To Smoke? Yes MIGRATION.268788 2096 Information not available 09/24/2022 Are There Any Smokers In Your House? No MIGRATION.458363 7739 Information not available 09/24/2022 Has Tobacco Cessation Counseling Been Provided? No Information not available 10/13/2022 Have You Recently Traveled Abroad? No MIGRATION.704477 5342 Information not available 09/24/2022 Do You Have Any Dietary Restrictions? No MIGRATION.825225 2592 Information not available 09/24/2022 Sex: Unknown Functional Status Question Answer Note LastModified by [employer] ion Details LastModified Time Do you use any illicit or recreational drugs? No cannabis Information not available 10/13/2022 Do you or have you ever used any other forms of tobacco or nicotine? Yes MIGRATION.21970 00044 Information not available 09/24/2022 What is your level of alcohol consumption? 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 Current user of electronic cigarettes without nicotine MIGRATION.25671 07094 Information not available 09/24/2022 What is your exercise level? Heavy MIGRATION.27551 84543 Information not available 09/24/2022 Mental Status Question Answer Note LastModified by Organizat ion Details LastModified Time Do you feel stressed (tense, restless, nervous, or anxious, or unable to sleep at night)? [id number] MIGRATION.[id number] 6 Information not available 09/24/2022 Family History Relationship Description Onset Age of this Age Resolved Age Notes LastModified by Organization Details LastModified Time Mother Autoimmune disease MIGRATION.[id number] Not available 09/24/2022 01:31:58 Mother Migraine MIGRATION.658 [id number] Not available 09/24/2022 01:31:58 Paternal Grandmother Migraine MIGRATION.618 [id number] Not available 09/24/2022 01:31:58 Medical History Condition Response NERVE DISEASE N BLINDNESS N RHEUMATIC FEVER N KIDNEY STONES N BLADDER PROBLEMS N MRSA N OTHER # 1 N POLIO N LUNG DISEASE/DISORDER N HISTORY OF DRUG ABUSE N RADIATION / CHEMOTHERAPY N COPD N Other # 2 N BLOOD DISEASES N EAR OR HEARING PROBLEMS N MUMPS N SHINGLES N BOWEL PROBLEMS N DEPRESSION (INCLUDING POST ) N STROKE/TIA N ULCERS N BENIGN PROSTATIC HYPERPLASIA N MEASLES N HYPOTENSION N MYOCARDIAL INFARCTION N OBESITY N GERD/NAUSEA N ANEURYSM N URINARY/BLADDER/KIDNEY PROBLEMS N CORONARY ARTERY DISEASE (CAD) N ADDICTION CONCERNS N ENDOMETRIOSIS N Impotence N USE OF BLOOD THINNERS N SKIN PROBLEMS N GASTROINTESTINAL DISORDER N PERIPHERAL VASCULAR DISEASE N MUSCLE,JOINT OR BONE PROBLEMS N GASTROINTESTINAL BLEEDING N BLOOD CLOTS N ASTHMA Y CATARACTS N ERECTILE DYSFUNCTION N VARICOSITIES N GI PROBLEMS N Low Testosterone N INFERTILITY N AIDS/HIV N CHEMOTHERAPY / RADIATION N LIVER DISEASE N MALE HYPOGONADISM N HYPERTENSION N Deficiency N TOURETTE'S N ANXIETY DISORDER Y BLOOD TRANSFUSION N ANEMIA/BLOOD DISORDER N CHRONIC EAR INFECTIONS N BRONCHITIS N TUBERCULOSIS N GLAUCOMA N FOOT PROBLEM N DIVERTICULITIS N CHICKENPOX N SLEEP APNEA N INFECTIOUS DISEASE N HEART ARRHYTHMIA N PROSTATE N INSOMNIA N HIGH CHOLESTEROL / HYPERLIPIDEMIA N HYPERTHYROIDISM N EYE PROBLEMS N EDEMA N CHRONIC PAIN SYNDROME N HYPOTHYROIDISM N CAROTID BLOCKAGE N CONSTIPATION N BACK / NECK PROBLEMS N HAVE YOU BEEN HOSPITALIZED OR SEEN IN [facility] IN THE PAST YEAR ? N ATHEROSCLEROSIS N BREAST PROBLEMS N DIALYSIS N ECZEMA N OSTEOPOROSIS N ARTHRITIS N NO SIGNIFICANT PAST MEDICAL HISTORY N APPENDICITIS N DIABETES, TYPE N BAD TEETH N ENT N HEARTBURN / REFLUX N AUTISM SPECTRUM DISORDER (ASD) N HEPATITIS / LIVER DISEASE N GOUT N SLEEP DISORDER N ALZHEIMER'S DISEASE N Brain Problems N HERPES N DEMENTIA N HEADACHES/MIGRAINES Y SEIZURES/EPILEPSY N VASCULAR DISEASE N PACEMAKER N Blood Disorder N DIZZINESS N HEART DISEASE/HEART PROBLEMS N KIDNEY DISEASE N MULTIPLE SCLEROSIS N CARDIAC ARRHYTHMIA N CANCER: SPECIFY N ATRIAL FIBRILLATION N Gall Stones N PULMONARY EMBOLISM N AUTOIMMUNE DISEASE N Gynecological HistoryNo gynecological history recorded. Obstetrics History GPAL:G 0 P 0 0 0 0 Immunizations Vaccine Type Date Status Note Provider Nam e and Address Organization Details Recorded Time Tdap 04/23/2023 completed LINDA Kumar [address] [facility], [address], [place], [address], [facility] 04/23/2023 16:42:54 Past Encounters Encounter ID Performer Location Encounter Start Date Encounter Closed Date Diagnosis/Indication Diagnosis SNOMED-CT Code Diagnosis ICD10 Code Diagnosis Note [id number] Matt penn MD [facility] [address] [facility] [address] [place] [address] 02/20/2022 00:00:00 02/20/2022 15:59:35 [id number] Matt penn MD [facility] [address] [facility] [address] [place] [address] 03/20/2022 00:00:00 03/20/2022 13:20:36 [id number] Matt penn MD [facility] [address] [facility] [address] [place] [address] 07/10/2022 00:00:00 07/10/2022 14:04:37 [id number] Matt penn MD [facility] [address] [facility], [facility] [address] [place] [address] 09/18/2022 00:00:00 09/18/2022 17:00:10 [id number] Juan Manuel Nugent DPM [facility] [place] [address] [place] [address] [address] [place] [address] 10/13/2022 15:24:12 10/15/2022 11:34:35 Pruritic rash 95866849 L28.2 left foot and right thighfollo w lab workpossib le punch biopsy if return, as it appears to be resolvingf ollow up in 3 weeks [id number] Matt penn MD [facility] Internal Med [facility] [address] [facility] [facility] [address] [place] [address] 10/16/2022 15:45:52 10/16/2022 16:16:30 Migraine 91566164 G43.909 Ubrelvy helped but insurance won't coverwill try Nurtec instead- 1 sample box given to patientshe will call if she desires rosario Leosfran p.r.n. for nauseaER precaution s discussed Anxiety 20838653 F41.9 increase fluoxetine -she is aware of side effects, risks, benefitsOn hydroxyzin e p.r.n. for panic attackCall office if any change in mood or behaviorCo ntinue counseling sessions with therapist/ EAPShe declines psychiatry referral support provided to patient today, over 25 min spent with patient, over half spent on counseling Posttrauma tic stress disorder 81839068 F43.10 as above Varicose v eins of lower extremity 45554467 I83.90 recommend she get compressio n stockings to wear during the day while at work Neetu thyroiditis 21 829513 E06.3 scant antibodies but normal TSH and T4will continue to monitor Vitamin D deficiency 347 11185 E55.9 on supplement Eruption 618063014 R21 following podiatry- will have upcoming punch biopsy [id number] Juan Manuel Nugent DPM [facility] [place] [address] [facility] [address] [place] [address] 11/03/2022 15:19:05 11/18/2022 16:43:58 Pruritic rash 58567420 L28.2 left foot 95% resolvedde rmatology referralpo ssible effect of hyperthyro idismlabs from pcp reviewed elevated thyroid, other normalposs ible punch biopsy if returnsfol low up as needed [id number] Matt penn MD [facility] Internal Med [facility] [address] [facility] [address] 11/20/2022 15:22:40 11/20/2022 15:34:50 Migraine 06566487 G43.909 Nurtec worked much better than the Ubrelvy- she would like script sentGave her 2 boxes of samples today while we await insurance PAhas Zofran p.r.n. for nauseaER precaution s discussed Anxiety 97846851 F41.9 on fluoxetine -she is aware of side effects, risks, benefitsOn hydroxyzin e p.r.n. for panic attackCall office if any change in mood or behaviorCo ntinue counseling sessions with therapist/ Coy cohen psychiatry referral support provided to patient today, over 25 min spent with patient, over half spent on counseling Posttrauma tic stress disorder 83082810 F43.10 as above Varicose v eins of lower extremity 59649950 I83.90 recommend she get compressio n stockings to wear during the day while at work Neetu thyroiditis 21 962443 E06.3 scant antibodies but normal TSH and T4will continue to monitor Vitamin D deficiency 347 75032 E55.9 on supplement Eruption 835150362 R21 following podiatry- will have upcoming punch biopsy [id number] Matt penn MD [facility] [address] [facility], [address] [place] [address] 02/25/2023 10:34:43 02/25/2023 11:02:11 Migraine [id number] G43.909 Nurtec worked much better than the Ubrelvy- she would like script sentGave her 1 box of samples today while we await insurance PAhas Zofran p.r.n. for nauseaER precaution s discussed Anxiety 57194046 F41.9 on fluoxetine -she is aware of side effects, risks, benefitsOn hydroxyzin e p.r.n. for panic attackCall office if any change in mood or behaviorCo ntinue counseling sessions with therapist/ Bala recommend psychiatry referral- Dr. Chirinos She can commit to safety today, will call 911 or go to ER if she experience s a crisis situation Posttrauma tic stress disorder 53401178 F43.10 as above Varicose v eins of lower extremity 83859865 I83.90 recommend she get compressio n stockings to wear during the day while at work Neetu thyroiditis 21 134310 E06.3 scant antibodies but normal TSH and T4will continue to monitor Vitamin D deficiency 347 49958 E55.9 on supplement Eruption 360535960 R21 Podiatry referred her to derm but she wasn't sure where to goget appt with dermatolog y- referral given to Dr. Ortega [id number] Matt penn MD [facility] Internal Med [facility] [address] [facility], [place] [address] 04/23/2023 15:09:00 04/23/2023 15:49:05 Infected insect bite 581763879 L08.9 Start doxycyclin e-she has been made aware to use condoms as a backup for during and 2 weeks after finishing the medication as she is on OCPWash with gentle soap twice a dayCall office if no improvemen t after medsER precaution s if worseTdap updated today Open wound of ankle 1256 14053 S91.002A as above [id number] Matt penn MD [facility] Internal Med [facility] [address] [facility], [address] 07/06/2023 15:21:29 07/06/2023 15:43:36 Migraine 48973984 G43.909 Nurtec worked much better than the Ubrelvy- she would like script sentGave her 1 box of samples today while we await insurance PAhas Zofran p.r.n. for nauseaER precaution s discussed Anxiety 06833499 F41.9 on fluoxetine -she is aware of side effects, risks, benefitsOn hydroxyzin e p.r.n. for panic attackCall office if any change in mood or behaviorCo ntinue counseling sessions with therapist/ EAPhas appt with psychiatry next week- [employer] Elise in [place] (she is not sure last name) She can commit to safety today, will call 911 or go to ER if she experience s a crisis situation Posttrauma tic stress disorder [id number] F43.10 as above Varicose v eins of lower extremity [id number] I83.90 recommend she get compressio n stockings to wear during the day while at work Neetu thyroiditis 21 100404 E06.3 scant antibodies but normal TSH and T4will continue to monitor Vitamin D deficiency 347 31770 E55.9 on supplement Eruption [id number] R21 Podiatry referred her to derm but she wasn't sure where to goget appt with dermatolog y- referral previously given to Dr. Ortega Health Concerns Section Related Observation LastModified by Organization Detai ls LastModified Time None Recorded Concern Status LastModified by Organization Details LastModified Time None Recorded Advance Directives Directive None Recorded Payers Encounter Date Sequence Insurance Name Policy Number Policy Silva Covered Member ID Silva Member ID Guarantor Name 11/03/2022 1 [place] [id number] Candice Zimmerman [id number] Ana White Swan 11/20/2022 1 [place] [id number] Candice Zimmerman [id number] Ana White Swan 02/25/2023 1 [place] [id number] Candice Zimmerman [id number] Ana White Swan 04/23/2023 1 [place] [id number] Candice Zimmerman [id number] Ana White Swan 07/06/2023 1 [id number]|2024-12-11 10:46:00|2024-12-11 10:45:00|XMS_ITS|BKG DAEMON|External Medical Summaries|[id number]|" Clinical Summary Created on: December 11, 2024 Ana Zimmerman : 2000 Sex: Female Author Organization [facility] Address [facility] [place] [address] Care Team Providers Care Opto Mechanical Engineer Name Role Phone None, Provider Primary Care Provider Unavaila ble Encounters Date Type Department Care Team Description 11/09/2024 10:28 AM CDT - 11/09/2024 11:59 PM CDT Hospital Encounter [facility] [place] [address] Myriam Reed NP Discharge Disposition: Home or Self Care (Routine Discharge) 11/09/2024 Travel 09/19/2024 11:45 AM ELECTRICAL AND INSTRUMENT ENGINEER - 09/19/2024 11:59 PM ELECTRICAL AND INSTRUMENT ENGINEER Hospital En[facility] [address] Myriam Reed NP Discharge Disposition: Home or Self Care (Routine Discharge) 09/19/2024 Travel from Last 3 Months Social History Tobacco Use Types Packs/Day Years Used Date Smoking Tobacco: Never Assessed Comments Unknown Sex and Gender Information Value Date Recorded Sex Assigned at Female 09/19/2024 11:37 AM ELECTRICAL AND INSTRUMENT ENGINEER Legal Sex Female 9:23 AM CDT Gender Identity Not on file Sexual Orientation Not on file Plan of Treatment Health Maintenance Due Date Last Done Comments Annual Physical 2002 HPV Vaccines (3 - 2-dose series) 07/31/2009 04/02/2009, 01/28/2009, 08/09/2008 Hepatitis C 2017 Meningococcal B Vaccine (2 of 2 - Trumenba SCDM 2-dose series) 07/12/2019 01/10/2019 COVID-19 Vaccine ( - season) 2024 Cervical Cancer Screening Pap Smear (Age 21 to 29) Every 3 Years 08/20/2024 08/20/2021, 08/20/2021, 08/20/2021 Cervical Cancer Screening 08/20/2024 DTaP, Tdap and Td Vaccines (8 - Td or Tdap) 04/23/2033 04/23/2023, 01/29/2011, 10/27/2004, Additional history exists Hepatitis B Vaccines Completed 10/20/2000, 04/29/2000, 1999 Pneumococcal Vaccine: Pediatrics (0 to 5 Years) and At-Risk Patients (6 to 49 Years) Completed 09/05/2001, 06/23/2000, 04/29/2000, Additional history exists Meningococcal Vaccine Completed 09/24/2015 RSV Immunizations Under 20 Months Aged Out No longer eligible based on patient's age to complete this topic Procedures Procedure Name Priority Date/Time Associated Diagnosis Comments XR THOR SPINE 2V Routine 11/09/2024 10:4 3 AM CDT Burst fracture of thoracic vertebra ([facility]/H[facility]) XR SCOLIOSIS Routine 09/19/2024 12:10 PM ELECTRICAL AND INSTRUMENT ENGINEER Back pain from Last 3 Months Results * XR THOR SPINE 2V (11/09/2024 10:43 AM CDT) Anatomical Region Laterality Modality Spine Radiographic Ning ging 11/09/2024 4:39 PM CDT Impressions 11/09/2024 4:40 PM CDT =====IMPRESSION:===== Moderate T8 compression fracture deformity. Ordered By: MYRIAM REED Interpreted By: Isidoro Banks MD, 11/09/2024 4:39 PM Narrative 11/09/2024 4:[address] PM [address]T [address] [address] Examination: Thoracic spine x-rays Exam date/time: 11/09/2024 10:31 AM Reason For Exam: MIDDLE BACK PAIN -BURST FX Comparison: 09/19/2024 scoliosis study Technique: AP and lateral views of the thoracic spine were obtained. Findings: No evidence of vertebral segmentation anomalies. 12 rib pairs. There is a moderate compression fracture deformity of the T8 vertebral body with no evidence of retropulsion of bone into the spinal canal. Radiographic appearance appears similar on the prior exam. No other findings of thoracic vertebral fractures. No evidence of subluxation or dislocation. Intervertebral disc heights appear normal. Procedure Note Isidoro Banks MD - 11/09/[address], [place] [address] Examination: Thoracic spine x-rays Exam date/time: 11/09/2024 10:31 AM Reason For Exam: MIDDLE BACK PAIN -BURST FX Comparison: 09/19/2024 scoliosis study Technique: AP and lateral views of the thoracic spine were obtained. Findings: No evidence of vertebral segmentation anomalies. 12 rib pairs.There is a moderate compression fracture deformity of the T8 vertebralbody with no evidence of retropulsion of bone into the spinal canal.Radiographic appearance appears similar on the prior exam. No otherfindings of thoracic vertebral fractures. No evidence of subluxation ordislocation. Intervertebral disc heights appear normal. =====IMPRESSION:===== Moderate T8 compression fracture deformity. Ordered By: MYRIAM REED Interpreted By: Isidoro Banks MD, 11/09/2024 4:39 PM Myriam Reed FUGITIVE INVESTIGATOR GENERAL IMAGING Final Result * XR SCOLIOSIS (09/19/2024 12:10 PM ELECTRICAL AND INSTRUMENT ENGINEER) Anatomical Region Laterality Modality Spine Radiographic Ning ging 09/25/2024 8:23 AM ELECTRICAL AND INSTRUMENT ENGINEER Impressions 09/25/2024 8:26 AM ELECTRICAL AND INSTRUMENT ENGINEER IMPRESSION: 1. Compression fracture of T8, age indeterminate. No prior examination for comparison. 2. Mild scoliosis as described. Referred By: Interpreted By: Parmjit Dowling MD, 09/25/2024 8:23 AM Narrative 09/25/2024 8:26 AM ELECTRICAL AND INSTRUMENT ENGINEER [facility] [address] [place], [place] [address] EXAMINATION: Scoliosis radiograph of the spine. EXAM DATE: 09/19/2024 11:56 AM REASON FOR EXAM: Back Pain COMPARISON: None TECHNIQUE: 2 views FINDINGS: 12 thoracic type and 5 lumbar-type vertebrae are identified. Compression fracture of T8. Mild levoscoliosis of 1 degree from T8 through T12. Dextroscoliosis of 3 degrees from L1 through L4. Lateral view demonstrates no evidence of malalignment. Procedure Note Parmjit Dowling MD - 09/25/[address] [address] EXAMINATION: Scoliosis radiograph of the spine. EXAM DATE: 09/19/2024 11:56 AM REASON FOR EXAM: Back Pain COMPARISON: None TECHNIQUE: 2 views FINDINGS: 12 thoracic type and 5 lumbar-type vertebrae are identified. Compression fracture of T8. Mild levoscoliosis of 1 degree from T8 through T12. Dextroscoliosis of 3 degrees from L1 through L4. Lateral view demonstrates no evidence of malalignment. IMPRESSION: 1. Compression fracture of T8, age indeterminate. No prior examinationfor comparison. 2. Mild scoliosis as described. Referred By: Interpreted By: Parmjti Dowling MD, 09/25/2024 8:23 AM Myriam Reed NP GENERAL IMAGING Final Result from Last 3 Months Insurance Care Teams Opto Mechanical Engineer Relationship Specialty Start Date End Date None, Provider, MD PCP - General UNKNOWN PHYSICIAN SPECIALTY 09/19/24 "
[2024-12-11 11:10] LABS: BEDSIDEPREGUCG Negative (Negative)
[2024-12-11 11:12] LABS: Basophils Percent Auto 0.3 % (0.2-1.2); Eosinophils Absolute Auto 0.1 K/mm3 (0-0.3); Hematocrit 39.8 % (37.0-47.0); Hemoglobin 12.8 g/dL (12.0-15.0); Immature Granulocyte Absolute 0.01 K/mm3 (0.00-0.031); Immature Granulocyte Percent A 0.2 % (0-0.5); Lymphocytes Absolute Auto 2.07 K/mm3 (0.9-3.2); Lymphocytes Percent Auto 34.3 % (18.3-44.2); Mean Corpuscular HGB Conc 32.2 g/dl (32-36); Mean Corpuscular Hemoglobin 30.2 pg (26-34); Mean Corpuscular Volume 93.9 fl (80-100); Mean Platelet Volume 9.1 fl (7.4-10.4); Monocytes Absolute Auto 0.2 K/mm3 (0.1-0.6); Neutrophils Absolute Auto 3.6 K/mm3 (1.3-6.7); Neutrophils Percent Auto 60.2 % (45.5-73.1); Platelet Count Result 272 k/mm3 (150-375); Red Blood Count 4.24 M/mm3 (4.2-5.4); Red Cell Distribution Width 12.1 % (11.5-14.5)
[2024-12-11 11:16] LABS: Add Urine Microscopic? YES; Appearance Urine Clear (Clear); Bacteria Urine Rare /hpf; Bilirubin Urine Negative (Negative); Blood Urine Negative (Negative); Color Urine Yellow (Yellow); Glucose Urine UA Negative (Negative); Ketones Urine Negative (Negative); Leukocyte Esterase Ur Trace LEU/UL (Negative); Nitrate Urine Negative (Negative); Non Pathogenic Casts 0-2; Protein Urine Negative (Negative); RBC Urine 0-2 /hpf (0-2); Specific Grav Ur 1.007 (1.001-1.035); Squamous Epithelial Cell Urine Occasional /hpf (Few); Urobilinogen Urine 0.2 mg/dL (<2.0); WBC Urine 0-5 /hpf (0-3); pH Urine 7.5 (5.0-9.0)
[2024-12-11 11:26] LABS: Alanine Aminotransferase 17 U/L (6-35); Albumin Level 4.5 g/dL (3.5-5.1); Alkaline Phosphatase 73 U/L (38-126); Anion Gap 7 mmol/L (4-12); Aspartate Amino Transferase 22 U/L (14-36); Bilirubin,Total 0.3 mg/dL (0.2-1.3); Blood Urea Nitrogen 9 mg/dL (7-17); Calcium 9.1 mg/dL (8.4-10.2); Carbon Dioxide 28 mmol/L (22-30); Chloride 104 mmol/L (98-107); Estimated CRCL calculation 130 ml/min; Estimated Glomerular Filt Rate > 60; Glucose 97 mg/dL (65-110); Lipase 32 U/L (23-300); Potassium 3.8 mmol/L (3.4-5.0); Sodium 139 mmol/L (137-145)
--- OUTSIDE RECORDS SUMMARY | 2024-12-11 12:16 | XMS_ITS | Continuity of Care Document ---
Author Organization [facility] Address [address] [place] [address] Phone Care Team Providers Care Trade Economist Name Role Phone Leon OD, Aguilar Unavailable Unavailable Procedures Procedure Date Eye Exam, New Patient Refraction Advance Directives Directive Yes / No Effective Date File Name No Information Encounters Encounter Description Practice Location Reason(s) For Visit Diagnoses Date Provider Providers Copied on Encounter [facility], [address], [place], [place], [id number], [place] tel:[phone] [facility] No Information Sep- 5-201 0 Leon OD Aguilar. [address] , [address], [place], [address], [place]. tel:[phone] Family History Family Member Type Diagnosis Age At Onset No Information Payers Payer name Insurance type Covered libertarian ID Authoriza tion(s) Medicaid [facility] [id number] Social History Type Description Quantity Date Captured [...]
--- OUTSIDE RECORDS SUMMARY | 2024-12-11 12:16 | XMS_ITS | Clinical Summary ---
Author Organization [facility] Address [address] [place] [id number] Care Team Providers Care Jack Prizer Name Role Phone None, Provider MD Primary Care Provider Unavaila ble Encounters Date Type Department Care Team Description 11/09/2024 10:28 AM CDT - 11/09/2024 11:59 PM CDT Hospital Encounter [facility] [place] [address] Lorraine Reed, RUSTY Discharge Disposition: Home or Self Care (Routine Discharge) 11/09/2024 Travel 09/19/2024 11:45 AM DISTILLERY WORKER GENERAL - 09/19/2024 11:59 PM DISTILLERY WORKER GENERAL Hospital Encounter [facility] [place] [address] Lorraine Reed, RUSTY Discharge Disposition: Home or Self Care (Routine Discharge) 09/19/2024 Travel from Last 3 Months Social History Tobacco Use Types Packs/Day Years Used Date Smoking Tobacco: Never Assessed Comments Unknown Sex and Gender Information Value Date Recorded Sex Assigned at Female 09/19/2024 11:37 AM DISTILLERY WORKER GENERAL Legal Sex Female 9:23 AM CDT Gender Identity Not on file Sexual Orientation Not on file Plan of Treatment Health Maintenance Due Date Last Done Comments Annual Physical 2002 HPV Vaccines (3 - 2-dose series) 07/31/2009 04/02/2009, 01/28/2009, 08/09/2008 Hepatitis C 2017 Meningococcal B Vaccine (2 of 2 - Trumenba SCDM 2-dose series) 07/12/2019 01/10/2019 COVID-19 Vaccine ( season) 2024 Cervical Cancer Screening Pap Smear [...] AM CDT Burst fracture of thoracic vertebra ([facility]) XR SCOLIOSIS Routine 09/19/2024 12:10 PM DISTILLERY WORKER GENERAL Back pain from Last 3 Months Results * XR THOR SPINE 2V (11/09/2024 10:43 AM CDT) Anatomical Region Laterality Modality Spine Radiographic Ning ging 11/09/2024 4:39 PM CDT Impressions 11/09/2024 4:40 PM CDT =====IMPRESSION:===== Moderate T8 compression fracture deformity. Ordered By: LORRAINE REED Interpreted By: Isidoro Banks MD, 11/09/2024 4:39 PM Narrative 11/09/2024 4:40 PM CDT [address] [place], [place] [address] Examination: Thoracic spine x-rays Exam date/time: 11/09/2024 [...] Procedure Note Isidoro Banks MD - 11/09/2024 [place] [address] Examination: Thoracic spine x-rays Exam date/time: 11/09/2024 [...] Moderate T8 compression fracture deformity. Ordered By: LORRAINE REED Interpreted By: Isidoro Banks MD, 11/09/2024 4:39 PM us Lorraine Reed BAND SAWMILL OPERATOR GENERAL IMAGING Final Result * XR SCOLIOSIS (09/19/2024 12:10 PM DISTILLERY WORKER GENERAL) Anatomical Region Laterality Modality Spine Radiographic Ning ging 09/25/2024 8:23 AM DISTILLERY WORKER GENERAL Impressions 09/25/2024 8:26 AM DISTILLERY WORKER GENERAL IMPRESSION: 1. Compression fracture of T8, age indeterminate. No prior examination for comparison. 2. Mild scoliosis as described. Referred By: Interpreted By: Parmjit Dowling MD, 09/25/2024 8:23 AM Narrative 09/25/2024 8:26 AM DISTILLERY WORKER GENERAL [place] [address] EXAMINATION: Scoliosis radiograph of the spine. EXAM [...] Procedure Note Parmjit Dowling MD - 09/25/2024 [place] [address] EXAMINATION: Scoliosis radiograph of the spine. EXAM [...] By: Parmjit Dowling MD, 09/25/2024 8:23 AM Lorraine Reed NP GENERAL IMAGING Final Result from Last 3 Months Insurance [facility] Care Teams Jack Prizer Relationship Specialty Start Date End Date None, Provider, MD PCP - General UNKNOWN PHYSICIAN SPECIALTY 09/19/24
--- NOTE | 2024-12-11 12:24 | ED_ITS ---
HPI - General Adult General Chief complaint: Abdominal Pain Stated complaint: abd pain Time Seen by Provider: 12/11/24 11:59 History of Present Illness HPI narrative: 24-year-old female presents emergency department for evaluation for epigastric abdominal pain. Patient states that she does have prior history of good when she was younger but takes no current medications for this. Patient does take intermittent times. Patient states she does have prior history of back surgery and had been taking a leave but felt that this worsened her symptoms so patient has not been taking very much NSAIDs lately. Patient denies any prior history of gallbladder disease. Related Data Home Medications Medication Instructions Recorded Confirmed Last Taken Type norgestimate-ethinyl estradiol 1 tablet PO DAILY 02/23/20 02/23/20 Unknown History 0.18mg/0.215mg/0.25mg-0.035mg(28)tablet (Tri Femynor) Allergies Allergy/AdvReac Type Severity Reaction Status Date / Time No Known Allergies Allergy Verified 12/11/24 10:28 Review of Systems 2 Review of Systems: All systems reviewed & are unremarkable except as noted in HPI and below Exam 2 Narrative: APPEARANCE: Well appearing, no pain, no distress, well-nourished. HEAD: normocephalic, atraumatic. EYES: PERRLA/EOMI, conjunctivae clear. NOSE: Normal no drainage EARS:TMS clear with good light reflex. THROAT: Pharynx clear, no exudate. NECK: Supple. No adenopathy, no masses. RESPIRATORY: Airway patent, respirations nonlabored. Clear to auscultation bilaterally, no rales, rhonchi, wheezing. CARDIOVASCULAR: Regular rate and rhythm without murmurs rubs or gallops. ABDOMINAL: Epigastric abdominal pain MUSCULOSKELETAL: Moves all extremities. Strength/ROM intact, No edema, No calf tenderness. NEURO: Alert. Cranial nerves II through XII intact. Grossly intact SKIN: Warm, dry. Normal Color Course Vital Signs Vital signs: Vital Signs Temperature 98.0 F 12/11/24 10:28 Pulse Rate 78 12/11/24 10:28 Respiratory Rate 20 12/11/24 10:28 Blood Pressure 141/70 H 12/11/24 10:28 Pulse Oximetry 100 12/11/24 10:28 Oxygen Delivery Room Air 12/11/24 10:28 Temperature 98.0 F 12/11/24 10:28 Pulse Rate 63 05/19/25 13:31 Respiratory Rate 13 12/11/24 13:31 Blood Pressure 125/70 12/11/24 13:31 Pulse Oximetry 98 12/11/24 13:31 Oxygen Delivery Room Air 12/11/24 10:28 Medical Decision Making MDM Narrative Medical decision making narrative: 24-year-old female presents emergency department for evaluation for epigastric abdominal pain. Patient does have epigastric and left upper quadrant abdominal tenderness with minor right upper quadrant tenderness. Patient is currently afebrile with no leukocytosis and hemoglobin of 12.8. Patient has no significant abnormalities on her CMP was normal AST ALT alk-phos and lipase. UA was negative for infection. Patient's urine test was negative. Patient was treated with IV famotidine, Protonix and with a GI cocktail. Right upper quadrant ultrasound was ordered. Ultrasound was negative for acute abnormality. Patient did feel improved with treatment. Differential Diagnosis Differential Diagnosis: Esophagitis, gastritis, GERD, cholelithiasis, cholecystitis Vital Signs Vital Signs: Vital Signs Temperature 98.0 F 12/11/24 10:28 Pulse Rate 78 12/11/24 10:28 Respiratory Rate 20 12/11/24 10:28 Blood Pressure 141/70 H 12/11/24 10:28 Pulse Oximetry 100 12/11/24 10:28 Oxygen Delivery Room Air 12/11/24 10:28 Temperature 98.0 F 12/11/24 10:28 Pulse Rate 63 12/11/24 13:31 Respiratory Rate 13 12/11/24 13:31 Blood Pressure 125/70 12/11/24 13:31 Pulse Oximetry 98 12/11/24 13:31 Oxygen Delivery Room Air 12/11/24 10:28 Lab Data Lab results reviewed: Yes I reviewed the patient's lab results. 12/11/24 11:04 12/11/24 11:04 Labs: Lab Results 12/11/24 12/11/24 Range/Units 11:04 11:07 WBC 6.0 (4.5-10.0) K/mm3 RBC 4.24 (4.2-5.4) M/mm3 Hgb 12.8 (12.0-15.0) g/dL Hct 39.8 (37.0-47.0) % MCV 93.9 (80-100) fl MCH 30.2 (26-34) pg MCHC 32.2 (32-36) g/dl RDW 12.1 (11.5-14.5) % Plt Count 272 (150-375) k/mm3 MPV 9.1 (7.4-10.4) fl Immature Gran % (Auto) 0.2 (0-0.5) % Neut % (Auto) 60.2 (45.5-73.1) % Lymph % (Auto) 34.3 (18.3-44.2) % [place] % (Auto) 4.0 (2.6-8.5) % Eos % (Auto) 1.0 (0-4.4) % Baso % (Auto) 0.3 (0.2-1.2) % Lymph # (Auto) 2.07 (0.9-3.2) K/mm3 [place] # (Auto) 0.2 (0.1-0.6) K/mm3 Eos # (Auto) 0.1 (0-0.3) K/mm3 Baso # (Auto) 0.0 (0.0-0.1) K/mm3 Abs Immat Gran (auto) 0.01 (0.00-0.031) K/mm3 Absolute Neuts (auto) 3.6 (1.3-6.7) K/mm3 Absolute Nucleated RBC 0.000 (0.0-0.012) K/mm3 Nucleated RBC % 0.0 (0.0-0.2) % Sodium 139 (137-145) mmol/L Potassium 3.8 (3.4-5.0) mmol/L Chloride 104 (98-107) mmol/L Carbon Dioxide 28 (22-30) mmol/L Anion Gap 7 (4-12) mmol/L BUN 9 (7-17) mg/dL Creatinine 0.64 L (0.7-1.0) mg/dL Estim Creat Clear Calc 130 ml/min Estimated GFR > 60 (59 - ) Glucose 97 (65-110) mg/dL Calcium 9.1 (8.4-10.2) mg/dL Total Bilirubin 0.3 (0.2-1.3) mg/dL AST 22 (14-36) U/L ALT 17 (6-35) U/L Alkaline Phosphatase 73 (38-126) U/L Total Protein 7.0 (6.3-8.2) g/dL Albumin 4.5 (3.5-5.1) g/dL Lipase 32 (23-300) U/L Urine Color Yellow (Yellow) Urine Appearance Clear (Clear) Urine pH 7.5 (5.0-9.0) Ur Specific [place] 1.007 (1.001-1.035) Urine Protein Negative (Negative) mg/dL Urine Glucose (UA) Negative (Negative) mg/dL Urine Ketones Negative (Negative) mg/dL Ur Blood (Man) Negative (Negative) Urine Nitrate Negative (Negative) Urine Bilirubin Negative (Negative) Urine Urobilinogen 0.2 (<2.0) mg/dL Leukocyte Esterase Rfl Trace H (Negative) AIMEE/UL Urine RBC 0-2 (0-2) /hpf Urine WBC 0-5 (0-3) /hpf Ur Squamous Epith Cells Occasional (Few) /hpf Urine Bacteria Rare /hpf Urine Casts 0-2 POC Urine HCG, Qual Negative (Negative) Imaging Data Radiologist's impression: Impressions Abdomen Ultrasound 12/11/24 13:14 IMPRESSION: Unremarkable sonographic evaluation of the right upper quadrant, as detailed above. Discharge Plan Discharge Clinical Impression: Abdominal pain, epigastric Patient Disposition: Home Condition: Stable Instructions: Antibiotic Form, Diet for Stomach Ulcers and Gastritis (ED), Abdominal Pain (ED) Additional Instructions: Avoid NSAIDs and avoid alcohol. Follow a bland diet. Take omeprazole for the next 14 days. Have close follow-up with your primary care physician have close follow-up with GI. Maalox as needed for intermittent abdominal pain. If you have any worsening symptoms then please call or return to the emergency department. Patient Language: [place] Prescriptions: New omeprazole 20 mg capsule,delayed release(DR/EC) 20 mg PO DAILY 14 Days Qty: 14 0RF No Action norgestimate-ethinyl estradiol [Tri Femynor] 0.18/0.215/0.25 mg-35 mcg (28) Tablet 1 tablet PO DAILY oxycodone 5 mg tablet 5 mg PO Q6H PRN (Reason: pain) Qty: 20 0RF cyclobenzaprine 5 mg tablet 5 mg PO TID PRN (Reason: muscle spasm) Qty: 15 0RF lidocaine 5 % adhesive patch,medicated 1 patch topical DAILY Qty: 15 0RF Rx Instructions: leave on most painful area for up to 12 hrs Follow-up/Referrals: PHYSICIAN,AUTO BODY BUILDER APPRENTICE [Primary Care Provider] - Eddie Recinos MD [Physician] -
[2024-12-11] MEDS: BELLADONNA ALK/PHENOB ELIX 10 ML, MAG HYDROX/ALUMINUM HYD/SIMETH 30 ML, LIDOCAINE 2% VI... PO (12:37)
[2024-12-11] MEDS: FAMOTIDINE 20 MG/2 ML VIAL IV PUSH (12:39)
[2024-12-11] MEDS: PANTOPRAZOLE SODIUM IV 40 MG VIAL IV PUSH (12:39)
[2024-12-11 13:10] VITALS: BP 99/85; PULSE 59; RESP 11; O2SAT 83
[2024-12-11 13:31] VITALS: BP 125/70; PULSE 63; RESP 13; O2SAT 98
== END 2024-12-11 14:29 | disposition home or self-care (01) ==
PROVIDERS: Physician Assistant; Emergency Provider Emergency Medicine
DX: R10.13 Epigastric pain (principal)
CPT/HCPCS: 36415; 76705; 80053; 81001; 81025; 83690; 85025; 96374; 96375; 99284; A9270; J2470

== ENCOUNTER 2025-07-05 09:58 | Outpatient (CLI) | payer BC, SELFPAY ==
[2025-07-05 10:40] LABS: Hematocrit 42.5 % (37.0-47.0); Hemoglobin 14.1 g/dL (12.0-15.0); Immature Granulocyte Percent A 0.2 % (0-0.5); Lymphocytes Absolute Auto 1.80 K/mm3 (0.9-3.2); Mean Corpuscular HGB Conc 33.2 g/dl (32-36); Mean Corpuscular Hemoglobin 30.5 pg (26-34); Mean Corpuscular Volume 91.8 fl (80-100); Nucleated Red Blood Cells Absolute Auto 0.000 K/mm3 (0.0-0.012); Nucleated Red Blood Cells Perc 0.0 % (0.0-0.2); Platelet Count Result 279 k/mm3 (150-375); Red Blood Count 4.63 M/mm3 (4.2-5.4); White Blood Count 5.8 K/mm3 (4.5-10.0)
[2025-07-05 11:01] LABS: Alanine Aminotransferase 18 U/L (6-35); Albumin Level 4.6 g/dL (3.5-5.1); Alkaline Phosphatase 92 U/L (38-126); Anion Gap 7 mmol/L (4-12); Aspartate Amino Transferase 22 U/L (14-36); Bilirubin,Total 0.6 mg/dL (0.2-1.3); Blood Urea Nitrogen 10 mg/dL (7-17); Calcium 9.5 mg/dL (8.4-10.2); Carbon Dioxide 25 mmol/L (22-30); Chloride 105 mmol/L (98-107); Cholesterol 216 mg/dL (0-200); Estimated Glomerular Filt Rate > 60; Glucose 105 mg/dL (65-110); HDL Direct 93 mg/dL; Potassium 4.2 mmol/L (3.4-5.0); Sodium 137 mmol/L (137-145); Total Protein 7.7 g/dL (6.3-8.2); Triglycerides 81 mg/dL (<150)
[2025-07-05 11:07] LABS: Hemoglobin A1C 5.6 % (<5.7)
[2025-07-05 11:19] LABS: Free T4 Free Thyroxine 1.11 ng/dL (0.78-2.19)
[2025-07-05 11:36] LABS: Thyroid Stimulating Hormone 1.260 uIU/mL (0.465-4.680)
[2025-07-05 11:55] LABS: Vitamin B12 361.0 pg/mL (239-931)
== END 2025-07-05 09:59 | disposition home or self-care (01) ==
PROVIDERS: PCP Nurse Practitioner Family; Visit Provider Nurse Practitioner Family
DX: Z00.01 Encounter for general adult medical examination with abnormal findings (principal); G43.909 Migraine, unspecified, not intractable, without status migrainosus; Z13.220 Encounter for screening for lipoid disorders; Z13.1 Encounter for screening for diabetes mellitus; Z13.29 Encounter for screening for other suspected endocrine disorder; Z11.59 Encounter for screening for other viral diseases; Z13.21 Encounter for screening for nutritional disorder
CPT/HCPCS: 36415; 80053; 80061; 82306; 82607; 83036; 84439; 84443; 85025; 86803